=== PATIENT | male | born 2000 | race Two or more races ===

== ENCOUNTER 2022-10-08 05:30 | Emergency (ER) | payer OTHER, SELFPAY ==
[2022-10-08 05:35] VITALS: BP 150/107; PULSE 107; RESP 17; TEMP 36.8; O2SAT 97; BMI 40.7
[2022-10-08 05:44] VITALS: PULSE 103; RESP 16; O2SAT 95
--- NOTE | 2022-10-08 05:53 | W.ED.OVERDOS ---
HPI - Overdose General: Chief Complaint: Overdose Stated Complaint: possible od Time Seen by Provider: 10/08/22 05:43 Source: patient Mode of arrival: ambulatory History of Present Illness: 21-year-old male presents emergency room concerned that he may have overdosed he took 2 Tylenol p.m. and a single dose of NyQuil within 30 minutes. He is awake and alert. He denies taking any other medications. At this point he is not sedated. No other complaints. Treatments Prior to Arrival: none Review of Systems Const: Denies: fever(s) or chills Card: Denies: chest pain Resp: Denies: dyspnea GI: Denies: abdominal pain, nausea or vomiting Skin/Breast: Denies: rash or pruritus Physical Exam Const: COMMON NORMALS: no acute distress GENERAL APPEARANCE: cooperative and comfortable ORIENTATION/CONSCIOUSNESS: Yes awake, Yes oriented to person, Yes oriented to place and Yes oriented to time HENMT: COMMON NORMALS: normocephalic, atraumatic and hearing grossly normal bilaterally HEAD & SCALP: normocephalic and atraumatic Resp: COMMON NORMALS: normal respiratory effort, No retractions, No use of accessory muscles and clear to auscultation bilaterally AUSCULTATION: clear to auscultation bilaterally Cardio: COMMON NORMALS: regular rate, regular rhythm and No murmurs present (Cardio) RATE: regular rate RHYTHM: regular rhythm Extremity: COMMON NORMALS: normal to inspection, capillary refill normal, no clubbing, cyanosis or edema, no calf tenderness and no pedal edema Neuro: SENSORIUM/ORIENTATION: Yes oriented to person, Yes oriented to place and Yes oriented to time Skin: COMMON NORMALS: no rashes or lesions noted GENERAL SKIN EXAM: no rashes or lesions noted Course Vital Signs: Vital signs: Vital Signs Temperature 98.3 F 10/08/22 05:35 Pulse Rate 103 H 10/08/22 05:44 Respiratory Rate 16 10/08/22 05:44 Blood Pressure 150/107 10/08/22 05:35 Pulse Oximetry 95 10/08/22 05:44 Oxygen Delivery Me thod Room Air 10/08/22 05:44 MDM - Overdose Medical Decision Making Medications not taken a toxic doses. He has no adverse side effects at this time. Discharge Plan Discharge Patient Disposition: Home Clinical Impression: No problem, feared complaint unfounded Condition: Stable Discharge Orders: Discharge ED (Routine); Ordered 10/08/22 Ordered By: Jose Mcghee Referrals: Bianka Tolentino OT [Primary Care Provider] - Tyson Blanchard MD [Family Provider] - Discharge Diet: Usual diet Discharge Activity: Resume usual activity Patient Instructions: Opioid Safety, Pain Management Activity Restrictions/Additional Instructions: Medications he took were not taken at toxic doses. Avoid mixing medications in the future. Coding Level of Care Code ED [facility] Justice for Darrell Humphrey
[2022-10-08 05:57] VITALS: PULSE 102; RESP 18; O2SAT 96
== END 2022-10-08 06:00 | disposition home or self-care (01) ==
LOC: ER 05:57
PROVIDERS: Emergency Provider Family Medicine; PCP Occupational Therapist
DX: Z03.89 Encounter for observation for other suspected diseases and conditions ruled out (principal)
CPT/HCPCS: 99281

== ENCOUNTER → 2024-12-31 13:25 | Outpatient (BNVA) | payer OTHER, SELFPAY | PROVIDERS: PCP Family Medicine; Visit Provider Family Medicine | DX: R73.03 Prediabetes (principal); Z13.6 Encounter for screening for cardiovascular disorders; Z68.41 Body mass index [BMI] 40.0-44.9, adult | CPT/HCPCS: 80053; 80061; 83036; 83721; 84439; 84443; 85025 ==

== ENCOUNTER 2025-01-17 13:09 | Outpatient (CLI) | payer OTHER, SELFPAY ==
--- NOTE | 2025-01-17 13:15 | XR_ITS ---
WS: [id number] Lumbar spine, AP and lateral views, Clinical Data: sciatica Comparison: None. Findings: No compression fractures or subluxation is seen. There is degenerative disc narrowing at L2-L3 and L3-L4. There are small osteophytes at L3 and L4. The transverse processes and SI joints are normal. There is a minimal levoscoliosis. XR/XR lumbar spine 2-3V* [id number] Impression: 1. Degenerative disc narrowing at L2-L3 and L3-L4. 2. Osteoarthritis at L3 and L4.
== END 2025-01-17 13:10 | disposition home or self-care (01) ==
PROVIDERS: PCP Family Medicine; Visit Provider Family Medicine
DX: M48.061 Spinal stenosis, lumbar region without neurogenic claudication (principal); M25.78 Osteophyte, vertebrae; M47.816 Spondylosis without myelopathy or radiculopathy, lumbar region
CPT/HCPCS: 72100